=== PATIENT | female | born 1975 | race Caucasian/White ===

== ENCOUNTER 2017-07-19 09:17 | Emergency (ER) | payer MEDICAID ==
[~2017-07-19] VITALS: Ht 165.1 cm; Wt 59.0 kg
[2017-07-19 09:17] VITALS: BP 101/67
[2017-07-19] MEDS ORDERED: KETOROLAC TROMETHAMINE INJ 60 MG/2 ML VIAL IM ONE (10:30)
[2017-07-19] MEDS ORDERED: KETOROLAC TROMETHAMINE INJ 30 MG/ML VIAL ONE (10:43)
== END 2017-07-19 11:12 | disposition home or self-care (01) ==
LOC: ER 09:23
DX: S13.9XXA Sprain of joints and ligaments of unspecified parts of neck, initial encounter (principal); Z88.5 Allergy status to narcotic agent; F17.200 Nicotine dependence, unspecified, uncomplicated; X58.XXXA Exposure to other specified factors, initial encounter; Y92.89 Other specified places as the place of occurrence of the external cause; Y93.89 Activity, other specified; Y99.8 Other external cause status
CPT/HCPCS: 72125; 96372; 99284; A4606; J1885; Z7610

== ENCOUNTER 2018-04-27 11:32 | Emergency (ER) | payer MEDICAID ==
[~2018-04-27] VITALS: Ht 162.6 cm; Wt 58.5 kg
[2018-04-27 11:59] VITALS: BP 102/71
[2018-04-27 12:04] LABS: APPEARANCE,URINE Clear (CLEAR); BILIRUBIN,URINE Negative (NEGATIVE); BLOOD, URINE Small Ery/uL (NEGATIVE); COLOR,URINE Light yellow (YELLOW); KETONES,URINE Negative (NEGATIVE); LEUKOCYTE ESTERASE ,URINE Large (NEGATIVE); NITRITE, URINE Negative (NEGATIVE); PROTEIN,URINE Negative (NEGATIVE); UGLUCOSE Negative (NEGATIVE); UROBILINOGEN,URINE 0.2 EU/dL (0.2)
[2018-04-27 12:24] LABS: BACTERIA,URINE Many /HPF (None Seen); SQUAMOUS EPITHELIAL CELL,UR Moderate /HPF (None Seen)
== END 2018-04-27 12:19 | disposition home or self-care (01) ==
LOC: ER 11:34
DX: N39.0 Urinary tract infection, site not specified (principal); F17.200 Nicotine dependence, unspecified, uncomplicated; Z88.5 Allergy status to narcotic agent; Z98.890 Other specified postprocedural states
CPT/HCPCS: 81000-TC; 84703-TC; 87086-TC; 87186-TC; A4606; Z7610

== ENCOUNTER 2018-11-23 23:54 | Emergency (ER) | payer MEDICAID ==
[~2018-11-23] VITALS: Ht 165.1 cm; Wt 59.0 kg
--- NOTE | 2018-11-24 00:10 | NUR ---
PT PRESENTED TO THE ER WITH A C/O SUPRAPUBIC ABD PAIN THAT RADIATES TO THE LEFT FLANK. PT GAVE A URINE SAMPLE AFTER TRIAGE AND AMBULATED TO ER 6. PT DENIES PAIN OR DISCOMFORT WITH URINATION. PT STATED THAT THE PAIN STARTED 3 DAYS AGO.
--- NOTE | 2018-11-24 01:13 | NUR ---
DR KING IS AT THE BEDSIDE
[2018-11-24] MEDS ORDERED: ONDANSETRON HCL/PF 4 MG/2 ML VIAL IVP ONE (01:30)
[2018-11-24] MEDS ORDERED: ONDANSETRON HCL/PF 4 MG/2 ML VIAL ONE (01:35)
--- NOTE | 2018-11-24 01:36 | NUR ---
18G IV STARTED IN [facility]. BLOOD WAS DRAWN AND SENT TO LAB. TYPE AND SCREEN DRAWN.
--- NOTE | 2018-11-24 01:42 | NUR ---
PT REC'D ZOFRAN IVP ORDERED.
[2018-11-24 01:44] LABS: BASOPHILS % (AUTO) 0.1 % (0.0-2.0); HEMATOCRIT 39 % (33-45); HEMOGLOBIN 13.3 g/dL (11.5-14.8); LYMPHOCYTES # (AUTO) 2.4 /CMM (0.8-4.8); LYMPHOCYTES % (AUTO) 26.1 % (20.0-44.0); MEAN CORPUSCULAR HGB CONC 34 g/dl (31.0-36.0); MEAN CORPUSCULAR VOLUME 97 fL (82-100); MONOCYTES # (AUTO) 0.8 /CMM (0.1-1.30); MONOCYTES % (AUTO) 8.8 % (2.0-12.0); NEUTROPHILS # (AUTO) 5.9 /CMM (1.8-8.9); PLATELET COUNT (AUTO) 226 /CMM (150-450); RED BLOOD CELL COUNT(AUTO) 4.01 MIL/uL (4.0-5.2); WHITE BLOOD COUNT (AUTO) 9.3 K/uL (4.3-11.0)
[2018-11-24 01:53] LABS: CALCIUM, SERUM 8.7 mg/dL (8.5-10.1); CREATININE 0.8 mg/dL (0.6-1.3); POTASSIUM 3.3 mmol/L (3.5-5.1)
[2018-11-24 02:04] LABS: ALBUMIN 3.7 g/dL (3.4-5.0); BILIRUBIN,DIRECT 0.1 mg/dL (0.0-0.2); BILIRUBIN,TOTAL 0.5 mg/dL (0.2-1.0); TOTAL PROTEIN, SERUM 7.6 g/dL (6.4-8.2)
--- NOTE | 2018-11-24 02:46 | NUR ---
CALLING LAB RE: HCG QUANT OF 1. PER LAB, HCG = NEGATIVE. NOTIFIED.
[2018-11-24] MEDS ORDERED: HYDROMORPHONE INJ 0.5 MG/0.5 ML SYRINGE IV ONE (03:00)
[2018-11-24] MEDS ORDERED: HYDROMORPHONE INJ 0.5 MG/0.5 ML SYRINGE ONE (03:02)
--- NOTE | 2018-11-24 03:26 | NUR ---
US TECH IS AT THE BEDSIDE.
[2018-11-24 03:36] LABS: APPEARANCE,URINE TURBID (CLEAR); COLOR,URINE YELLOW (YELLOW)
[2018-11-24 03:37] LABS: PROTEIN,URINE 2+ mg/dl (NEGATIVE)
[2018-11-24 03:38] LABS: BILIRUBIN,URINE NEGATIVE (NEGATIVE); BLOOD, URINE 3+ Ery/uL (NEGATIVE); KETONES,URINE 2+ (NEGATIVE); UGLUCOSE NEGATIVE (NEGATIVE)
[2018-11-24 03:39] LABS: LEUKOCYTE ESTERASE ,URINE 3+ (NEGATIVE); NITRITE, URINE POSITIVE (NEGATIVE); UROBILINOGEN,URINE 0.2 EU/dL (0.2)
--- NOTE | 2018-11-24 03:40 | NUR ---
PT AMBULATED TO THE BATHROOM TO EMPTY HER BLADDER FOR US.
[2018-11-24 03:42] LABS: BACTERIA,URINE 3+ /HPF (None Seen); SQUAMOUS EPITHELIAL CELL,UR Few /HPF (None Seen); WBC,URINE 81-100 /HPF (0-3)
--- NOTE | 2018-11-24 03:42 | NUR ---
PT AMBULATED BACK TO ER 6 WITH A STEADY GAIT.
[2018-11-24] MEDS ORDERED: CEFTRIAXONE 1 G in IV D5W 50 ML IV ONE (04:30)
[2018-11-24] MEDS ORDERED: CEFTRIAXONE 1GM BAG (ER ONLY) 50 ML IV ONE (04:52)
--- NOTE | 2018-11-24 05:00 | NUR ---
PT REC'D ROCEPHIN ORDERED.
[2018-11-24 06:10] VITALS: BP 115/70
--- NOTE | 2018-11-24 06:11 | NUR ---
Patient discharged to home in stable condition. Written and verbal after care instructions given. Patient verbalizes understanding of instruction. IV removed. Catheter intact and site benign. Pressure and 4x4 applied to site. No bleeding noted.
--- NOTE | 2018-11-24 06:11 | NUR ---
PT AMBULATED OUT WITH A STEADY GAIT. PT'S FRIEND IS DRIVING PT HOME.
== END 2018-11-24 06:11 | disposition home or self-care (01) ==
LOC: ER 23:56
DX: R10.32 Left lower quadrant pain (principal); R10.31 Right lower quadrant pain; N39.0 Urinary tract infection, site not specified; M54.5 Low back pain; F17.200 Nicotine dependence, unspecified, uncomplicated; Z98.890 Other specified postprocedural states; Z88.5 Allergy status to narcotic agent
CPT/HCPCS: 36415; 76856-TC; 80048-TC; 80076-TC; 81000-TC; 84702-TC; 85025-TC; 85730-TC; 86850-TC; 87086-TC; 87186-TC; 87491; 87591; J0696; J2405; J7060

== ENCOUNTER 2020-08-01 16:01 | Emergency (ER) | payer MEDICAID ==
[~2020-08-01] VITALS: Ht 165.1 cm; Wt 60.8 kg
[2020-08-01] MEDS: DEXTROSE 50%-WATER 50 ML DISP.SYRIN IVP ONE (16:33)
--- NOTE | 2020-08-01 17:52 | NUR ---
BIBS FROM HOME TO ER BED 7. AAOX4. NOT IN RESP DISTRESS, BREATHING EVEN AND UNLABORED. CAME IN FOR RMID ABDOMINAL PAIN X 9 DAYS. PT RATES HER PAIN 8/10 SHARP IN NATURE. PT STATES THAT THE PAIN IS AGGREVATED BY MOVEMENT AND DEEP BREATHING. ROSSANA EDUARDO WAS AT THE BEDSIDE FOR EVAL. ORDERS RECEIVED NOTED AND CARRIED OUT. IV LINE ESTABLISHED ON R AC 20G. BLOOD DRAWN AND GIVEN TO DOUGHNUT FRYER.
[2020-08-01 17:53] LABS: BASOPHILS % (AUTO) 0.3 % (0.0-2.0); EOSINOPHILS % (AUTO) 1.3 % (0.0-6.0); HEMATOCRIT 39 % (33-45); LYMPHOCYTES # (AUTO) 2.2 /CMM (0.8-4.8); LYMPHOCYTES % (AUTO) 28.5 % (20.0-44.0); MEAN CORPUSCULAR HGB CONC 34 g/dl (31.0-36.0); MEAN CORPUSCULAR VOLUME 99 fL (82-100); MONOCYTES # (AUTO) 0.6 /CMM (0.1-1.30); MONOCYTES % (AUTO) 7.5 % (2.0-12.0); NEUTROPHILS # (AUTO) 4.9 /CMM (1.8-8.9); NEUTROPHILS % (AUTO) 62.4 % (43.0-81.0); PLATELET COUNT (AUTO) 202 /CMM (150-450); WHITE BLOOD COUNT (AUTO) 7.8 K/uL (4.3-11.0)
--- NOTE | 2020-08-01 17:56 | NUR ---
URINE COLECTED AND SENT TO LAB
[2020-08-01 18:12] LABS: APPEARANCE,URINE Slightly Cloudy (CLEAR); BILIRUBIN,URINE Negative (NEGATIVE); BLOOD, URINE Trace-intact Ery/uL (NEGATIVE); COLOR,URINE Yellow (YELLOW); KETONES,URINE Negative (NEGATIVE); LEUKOCYTE ESTERASE ,URINE Small (NEGATIVE); NITRITE, URINE Negative (NEGATIVE); PROTEIN,URINE Negative (NEGATIVE); UGLUCOSE Negative (NEGATIVE); UROBILINOGEN,URINE 0.2 EU/dL (0.2)
[2020-08-01 18:14] LABS: CALCIUM, SERUM 8.7 mg/dL (8.5-10.1); CREATININE 0.6 mg/dL (0.6-1.3); POTASSIUM 3.9 mmol/L (3.5-5.1)
[2020-08-01 18:16] LABS: BACTERIA,URINE Moderate /HPF (None Seen)
[2020-08-01 18:17] LABS: SQUAMOUS EPITHELIAL CELL,UR Few /HPF (None Seen)
[2020-08-01 18:21] LABS: ALBUMIN 3.4 g/dL (3.4-5.0); BILIRUBIN,DIRECT 0.1 mg/dL (0.0-0.2); BILIRUBIN,TOTAL 0.4 mg/dL (0.2-1.0); TOTAL PROTEIN, SERUM 6.8 g/dL (6.4-8.2)
--- NOTE | 2020-08-01 19:21 | NUR ---
PER ROSSANA BUSH PAGED DR. JUDD ([employer] [facility]). LEFT MESSAGE, WILL FOLLOW UP
[2020-08-01] MEDS ORDERED: CEFTRIAXONE 1GM BAG (ER ONLY) 50 ML IV ONE (19:52)
[2020-08-01] MEDS: CEFTRIAXONE 1 G in IV D5W 50 ML IV ONE (19:53)
--- NOTE | 2020-08-01 20:30 | NUR ---
Patient discharged to home in stable condition. Written and verbal after care instructions given. Patient verbalizes understanding of instruction.IV removed. Catheter intact and site benign. Pressure and 4x4 applied to site. No bleeding noted. Pt ambulatory with a steady gait
[2020-08-01 20:33] VITALS: BP 113/81
== END 2020-08-01 20:34 | disposition home or self-care (01) ==
LOC: ER 16:01
DX: N20.0 Calculus of kidney (principal); N39.0 Urinary tract infection, site not specified; F17.210 Nicotine dependence, cigarettes, uncomplicated; Z98.890 Other specified postprocedural states; Z88.6 Allergy status to analgesic agent
CPT/HCPCS: 36415; 74176; 80048; 80076; 81001; 83690; 84703; 85025; 85730; 87086; 96365; 99284; 99406; J0696 ×2; J7060; 81000-TC

== ENCOUNTER 2020-11-10 10:21 | Emergency (ER) | payer MEDICAID ==
[~2020-11-10] VITALS: Ht 162.6 cm; Wt 56.7 kg
[2020-11-10] MEDS ORDERED: CYCLOBENZAPRINE 10 MG TABLET PO ONE (11:30)
[2020-11-10] MEDS ORDERED: KETOROLAC TROMETHAMINE INJ 30 MG/ML VIAL IV ONE (11:30)
[2020-11-10] MEDS ORDERED: DEXAMETHASONE SOD PHOSPHATE 4 MG/ML VIAL IM ONE (11:30)
[2020-11-10] MEDS ORDERED: CYCLOBENZAPRINE 10 MG TABLET ONE (11:43)
[2020-11-10] MEDS ORDERED: DEXAMETHASONE SOD PHOSPHATE 10 MG/ML VIAL ONE (11:43)
[2020-11-10] MEDS ORDERED: KETOROLAC TROMETHAMINE INJ 30 MG/ML VIAL ONE (11:43)
--- NOTE | 2020-11-10 12:53 | NUR ---
Pt Able to ambulate to BR (short distance) Appears to be in NAD, no obvious distress
--- NOTE | 2020-11-10 13:31 | NUR ---
Patient discharged to home in stable condition. Written and verbal after care instructions given. Patient verbalizes understanding of instruction.
[2020-11-10 14:08] VITALS: BP 120/79
== END 2020-11-10 14:10 | disposition home or self-care (01) ==
LOC: ER 10:30
DX: M54.16 Radiculopathy, lumbar region (principal); Z98.890 Other specified postprocedural states; Z88.5 Allergy status to narcotic agent
CPT/HCPCS: 72131; 96372 ×2; 99284; J1100; J1885

== ENCOUNTER 2022-11-12 19:31 | Emergency (ER) | payer BC, OTHER ==
[~2022-11-12] VITALS: Ht 165.1 cm; Wt 67.6 kg
--- NOTE | 2022-11-12 21:43 | NUR ---
Patient came in to the er c/o back pain on and off x 1 week. On room air, breathing evenly and unlabored. Kept comfortable, will continue to monitor accordingly.
[2022-11-12 22:01] LABS: BASOPHILS % (AUTO) 0.4 % (0.0-2.0); EOSINOPHILS % (AUTO) 1.3 % (0.0-6.0); HEMATOCRIT 42 % (33-45); HEMOGLOBIN 13.8 g/dL (11.5-14.8); LYMPHOCYTES # (AUTO) 3.1 K/uL (0.8-4.8); LYMPHOCYTES % (AUTO) 37.7 % (20.0-44.0); MEAN CORPUSCULAR HGB CONC 33 g/dl (31.0-36.0); MEAN CORPUSCULAR VOLUME 96 fL (82-100); MONOCYTES # (AUTO) 0.5 K/uL (0.1-1.30); NEUTROPHILS # (AUTO) 4.5 K/uL (1.8-8.9); NEUTROPHILS % (AUTO) 54.6 % (43.0-81.0); PLATELET COUNT (AUTO) 251 K/uL (150-450); RED BLOOD CELL COUNT(AUTO) 4.31 MIL/uL (4.0-5.2); WHITE BLOOD COUNT (AUTO) 8.3 K/uL (4.3-11.0)
[2022-11-12 22:31] LABS: BILIRUBIN,DIRECT 0.1 mg/dL (0.0-0.2); BILIRUBIN,TOTAL 0.3 mg/dL (0.2-1.0); CALCIUM, SERUM 9.4 mg/dL (8.5-10.1); CREATININE 0.7 mg/dL (0.6-1.3); POTASSIUM 4.1 mmol/L (3.5-5.1); TOTAL PROTEIN, SERUM 7.8 g/dL (6.4-8.2)
[2022-11-12 22:50] LABS: BILIRUBIN,URINE NEGATIVE (NEGATIVE); COLOR,URINE OTHER (YELLOW); LEUKOCYTE ESTERASE ,URINE NEGATIVE (NEGATIVE); NITRITE, URINE NEGATIVE (NEGATIVE); PH,URINE 5.5 (5.0-8.0); PROTEIN,URINE NEGATIVE (NEGATIVE); UGLUCOSE NEGATIVE (NEGATIVE); UROBILINOGEN,URINE 0.2 EU/dL (0.2)
[2022-11-13] VITALS: BP 130/62
--- NOTE | 2022-11-13 00:31 | NUR ---
Patient does not wish to proceed with medical care recommended by Dr. SOTELO. Patient given information related to possible complications, up to and including , which could occur as a result of leaving the hospital at this time. Patient verbalizes understanding of risks involved due to leaving against medical advice. Patient has signed AMA form.
== END 2022-11-13 00:32 | disposition left against medical advice (07) ==
LOC: ER 19:45
DX: R10.9 Unspecified abdominal pain (principal); M54.50 Low back pain, unspecified; F17.200 Nicotine dependence, unspecified, uncomplicated; Z87.442 Personal history of urinary calculi
CPT/HCPCS: 36415; 80048-TC; 80076-TC; 83690-TC; 84703-TC; 85025-TC

== ENCOUNTER 2023-02-22 11:43 | Emergency (ER) | payer BC, MEDICAID, OTHER ==
[~2023-02-22] VITALS: Ht 167.6 cm; Wt 64.4 kg
--- NOTE | 2023-02-22 11:55 | NUR ---
Patient AOx4 able to express her concerns. Patient kade KUNZ has explained plan of care, verbalized agreement. All safety precautions taken, will continue to monitor.
[2023-02-22 12:05] LABS: BASOPHILS % (AUTO) 0.4 % (0.0-2.0); EOSINOPHILS % (AUTO) 3.6 % (0.0-6.0); HEMATOCRIT 38 % (33-45); HEMOGLOBIN 12.8 g/dL (11.5-14.8); LYMPHOCYTES # (AUTO) 1.6 K/uL (0.8-4.8); LYMPHOCYTES % (AUTO) 26.5 % (20.0-44.0); MEAN CORPUSCULAR HGB CONC 34 g/dl (31.0-36.0); MEAN CORPUSCULAR VOLUME 93 fL (82-100); MONOCYTES # (AUTO) 0.7 K/uL (0.1-1.30); MONOCYTES % (AUTO) 10.7 % (2.0-12.0); NEUTROPHILS # (AUTO) 3.6 K/uL (1.8-8.9); NEUTROPHILS % (AUTO) 58.8 % (43.0-81.0); PLATELET COUNT (AUTO) 233 K/uL (150-450); RED BLOOD CELL COUNT(AUTO) 4.08 MIL/uL (4.0-5.2); WHITE BLOOD COUNT (AUTO) 6.2 K/uL (4.3-11.0)
[2023-02-22] MEDS: IV NS 0.9% 1,000 ML BAG IV ONE (12:08)
--- NOTE | 2023-02-22 12:09 | NUR ---
Labs collected and sent to lab.
[2023-02-22 12:20] LABS: BILIRUBIN,URINE Negative (NEGATIVE); COLOR,URINE RED (YELLOW); LEUKOCYTE ESTERASE ,URINE Negative (NEGATIVE); NITRITE, URINE Negative (NEGATIVE); PROTEIN,URINE 100 mg/dl (NEGATIVE); UGLUCOSE Negative (NEGATIVE); UROBILINOGEN,URINE 0.2 EU/dL (0.2)
[2023-02-22 12:20] LABS: ALBUMIN 3.4 g/dL (3.4-5.0); BILIRUBIN,DIRECT 0.1 mg/dL (0.0-0.2); BILIRUBIN,TOTAL 0.3 mg/dL (0.2-1.0); CALCIUM, SERUM 8.5 mg/dL (8.5-10.1); CREATININE 0.8 mg/dL (0.6-1.3); TOTAL PROTEIN, SERUM 7.3 g/dL (6.4-8.2)
[2023-02-22] MEDS: MAG HYDROX/AL HYDROX/SIMETH 30 ML UDC PO ONE (12:22)
[2023-02-22] MEDS: FAMOTIDINE/PF INJ 20 MG/2 ML VIAL IV ONE (12:22)
[2023-02-22] MEDS: ONDANSETRON HCL/PF 4 MG/2 ML VIAL IVP ONE (12:22)
[2023-02-22] MEDS ORDERED: LIDOCAINE VISCOUS 2% UD 15 ML UDC ONE (13:04)
[2023-02-22] MEDS: LIDOCAINE VISCOUS 2% UD 15 ML UDC MM ONE (13:06)
[2023-02-22] MEDS ORDERED: FAMO-131 PO (14:09)
[2023-02-22] MEDS ORDERED: IBUP-1955 PO (14:09)
[2023-02-22] MEDS ORDERED: ONDA4TAB5 PO (14:09)
[2023-02-22] MEDS: KETOROLAC TROMETHAMINE INJ 30 MG/ML VIAL IV ONE (14:36)
[2023-02-22] MEDS ORDERED: KETOROLAC TROMETHAMINE 15 MG/ML VIAL ONE (14:36)
[2023-02-22 15:12] VITALS: BP 110/64
== END 2023-02-22 15:15 | disposition home or self-care (01) ==
LOC: ER 11:45
DX: R10.13 Epigastric pain (principal); R10.11 Right upper quadrant pain; R11.2 Nausea with vomiting, unspecified; Z87.442 Personal history of urinary calculi
CPT/HCPCS: 99285; 74176; 96374; 76705; 71045; 96375; 96361; 85025; 80048; 83690; 80076; 84703; 81001; 36415; J3490; J2405; J7030; J1885